=== PATIENT | male | born 1965 | race Caucasian/White ===

== ENCOUNTER 2016-11-07 18:13 | Inpatient (IN) | payer OTHER ==
[~2016-11-07] VITALS: Ht 193 cm; Wt 79.4 kg
--- NOTE | ~2016-11-07 | PA ---
Unit #: [id number] #: [id number] Patient: MARK QUINTANILLA [id number] [facility] [address] [place] [address] [id number] MR#: [id number] NAME: MARK QUINTANILLA. ROOM: P256 Age: 51 Sex: M Admission Date: 11/07/2016 : 1965 Date of Assessment: 11/08/2016 Attending Physician: Cheng Scruggs M.D. Admitting Physician: Cheng Scruggs M.D. Primary Care Physician: Primary Care Physician No PSYCHIATRIC ASSESSMENT IDENTIFYING INFORMATION The patient is a 51-year-old white male admitted to [address] [place] [address] complaining of "panic attacks." INFORMANT(S) Patient. RELIABILITY Poor. CHIEF COMPLAINT Panic attacks. HISTORY OF PRESENT ILLNESS The patient is a 51-year-old homeless white male admitted to the [facility] after he had been brought to this facility by his "sample case porter" from [place] reporting that he has been suffering "panic attacks." Patient reports these have occurred frequently over the past couple of days and he is demanding reinitiation of Klonopin and Suboxone which he has taken in the past. Patient reports that he last took Suboxone approximately 4 days ago and claims that it was prescribed to him. He does have a history of opioid use disorder but states that he has been "clean" using Suboxone for the past 4 years. The patient was making suicidal ideation with threats to jump from the 12th floor of the [facility]. He denies any auditory or visual hallucinations. When informed today that we will look towards non-scheduled medications to address his reported symptoms, the patient becomes angry and states that he has "tried all the psychotropics and none of them work except Klonopin and Ativan." The patient had reported that he was hearing voices telling him to jump from a 12 story window to the assessment center staff but does not endorse any auditory hallucinations when seen by this physician today. PAST PSYCHIATRIC HISTORY The patient was last hospitalized at this facility in November and December of 2014. He was under the care of this physician at this time and was discharged on no medications. The patient is status post gastric bypass and has reported a history of malabsorption which has caused significant weight gain and other multiple health issues. FAMILY HISTORY Noncontributory. SOCIAL HISTORY Unit #: [id number] #: [id number] Patient: MARK QUINTANILLA The patient is homeless. He is per history. He has a history of opioid use disorder. MEDICAL HISTORY As above. MEDICATION HISTORY At the time of admission, the patient was reporting the following medications amitriptyline, omeprazole, atenolol, promethazine and Ventolin. ALLERGIES NSAIDs, Keflex. MENTAL STATUS EXAM At this time, reveals the patient to be a somewhat ill appearing, disheveled white male appearing significantly older than his stated age of 48 years. He is edentulous. He is awake, alert, and oriented in all spheres. His mood is angry and irritable. His affect congruent. Speech is generally relevant and coherent. There are no gross deficits in memory or cognition noted. Intelligence is judged to be in the average range based on fund of knowledge. The patient is less than optimally cooperative during interview. He is currently reporting positive suicidal ideation. He denies homicidal ideation. He denies any psychotic symptoms. His judgement and insight appear to be somewhat impaired. ASSETS AND LIABILITIES Patient's assets to be assessed. Liabilities, lack of resources. ADMITTING DIAGNOSES 1. Dysthymic disorder. 2. Anxiety disorder, unspecified. 3. Panic disorder, unspecified. 4. History of opioid use disorder. 5. Hepatitis C per patient history. 6. Non-alcoholic cirrhotic liver disease per patient history. 7. Status post gastric bypass per patient history. PSYCHIATRIC PLAN/TREATMENT GOALS The patient will remain hospitalized for safety and stabilization. I have attempted to calmly inform the patient that initiation of Klonopin will not be an initiated given his history of substance abuse as well as the fact that initiation of such medication will essentially negate any chance that the patient will be able to follow through the auspices of various community mental health resources given the fact that none of these agencies now provide patients with benzodiazepines and in fact refused to accept them. Even if this were not the case, I do not feel as though this patient is a candidate for treatment with benzodiazepine medication given his history of med seeking as evidenced in 2014 and clear history of substance abuse. For this reason, we will go ahead and attempt to address the patient's depressive and anxiety symptoms with initiation of paroxetine 20 mg daily for anxiety and depression and will add p.r.n. Vistaril. The patient's claims of auditory hallucinations may warrant initiation of a second generation antipsychotic. ESTIMATED LENGTH OF STAY Three to five days. Unit #: [id number] #: [id number] Patient: MARK QUINTANILLA Dictated by... Cheng Scruggs M.D. CB/cori TD: 11/08/2016 11:31 JOB #: [id number] PSYCHIATRIC ASSESSMENT Page 1 of 1 X Cheng Scruggs MD X PSYCHIATRIC ASSESSMENT
--- NOTE | ~2016-11-07 | DS ---
Unit #: [id number] #: [id number] Patient: MARK QUINTANILLA [id number] [place] [address] [id number] MR#: [id number] NAME: MARK QUINTANILLA. ROOM: [facility] Age: 51 Sex: M Admission Date: 11/07/2016 : 1965 Discharge Date: 11/10/2016 Attending Physician: Cheng Scruggs M.D. Primary Care Physician: Primary Care Physician No DISCHARGE SUMMARY REASON FOR ADMISSION The patient is a 51-year-old white male, admitted to the [facility], complaining "panic attacks." HOSPITAL COURSE The patient was admitted to the [facility] and placed on suicide precautions. Because of his complaints of anxiety and depression, he was begun on paroxetine 20 mg daily and Vistaril 50 mg q.6 hours p.r.n. anxiety. The patient participated to no significant degree whatsoever within therapeutic milieu and was med seeking throughout his stay in the hospital, demanding initiation of Ativan and Klonopin. Given his substance abuse history, this physician did not feel as though such medication was in the patient's best interest. On 11/10/2016, the patient requested discharge. This physician was informed that the patient did not wish to continue treatment with paroxetine and it will not be provided at the time of discharge. FINAL DIAGNOSES Opioid use disorder; dysthymic disorder; gastroesophageal reflux disease; hypertension; history of opioid use disorder; hepatitis C; nonalcoholic cirrhotic liver disease per patient history; status post gastric bypass. DISPOSITION ON DISCHARGE The patient is discharged on the following medications; Elavil 10 mg daily for chronic pain, Protonix 40 mg daily for GERD, Tenormin 25 mg daily for hypertension, Phenergan 25 mg t.i.d. p.r.n. nausea and vomiting, Proventil HFA 2 puffs b.i.d. for COPD, Vistaril 50 mg q.6 hours p.r.n. anxiety. DISCHARGE INSTRUCTIONS No dietary or physical restrictions were placed on the patient at the time of discharge. FOLLOWUP Followup will take place through the auspices of community mental health resources. PROGNOSIS The patient's prognosis remains guarded. Dictated by... Cheng Scruggs M.D. Unit #: [id number] #: [id number] Patient: MARK QUINTANILLA KYLE/naga TD: 11/11/2016 02:55 JOB #: [id number] DISCHARGE SUMMARY Page 1 of 1 X Cheng Scruggs MD X DISCHARGE SUMMARY
--- NOTE | ~2016-11-07 | HP ---
Unit #: [id number] #: [id number] Patient: MARK QUINTANILLA [id number] [place] [address] [id number] MR#: [id number] NAME: MARK QUINTANILLA. ROOM: P256 Age: 51 Sex: M Admission Date: 11/07/2016 : 1965 Attending Physician: Cheng Scruggs M.D. Admitting Physician: Cheng Scruggs M.D. Primary Care Physician: Primary Care Physician No HISTORY AND PHYSICAL HISTORY OF PRESENT ILLNESS The patient is a 51-year-old male admitted to [address] [place] [address] on 11/08/2016 for suicidal ideation. PAST MEDICAL HISTORY 1. Hypertension. 2. COPD. 3. Anemia. 4. Hernia. 5. Hepatitis C. PAST SURGICAL HISTORY 1. Gastric bypass. 2. Abdominal surgery to remove an obstruction. ALLERGIES Keflex, NSAIDs, and penicillin. SOCIAL HISTORY He is disabled. He lives at [employer] and he smokes 1/2 pack of cigarettes daily. FAMILY HISTORY Noncontributory. REVIEW OF SYSTEMS CONSTITUTIONAL: No fever or chills. HEENT: Denies any sore throat, ear pain or runny nose. CARDIOVASCULAR: Denies chest pain, irregular heart rhythm or palpitations. CHEST: Denies shortness of breath or cough. No hemoptysis. GASTROINTESTINAL: Denies nausea, vomiting, diarrhea or chronic constipation. ENDOCRINE: Denies history of increased thirst or urination. No recent significant weight loss or gain. GENITOURINARY: Denies dysuria, frequency, or hematuria. SKIN: Denies any rashes. HEMATOLOGIC: Denies history of increased bleeding or bruising. MUSCULOSKELETAL: Denies any hot, swollen joints. No generalized muscle pain. NEUROLOGIC: Denies problems with vision or speech. No frequent, severe headaches. No numbness, tingling or weakness in any extremities. Denies loss of bladder or bowel control. Unit #: [id number] #: [id number] Patient: MARK QUINTANILLA CURRENT MEDICATIONS 1. Amitriptyline. 2. Omeprazole. 3. Atenolol. 4. Ventolin. PHYSICAL EXAMINATION GENERAL: He is awake, alert, oriented, in no acute distress. VITAL SIGNS: Temperature 98.2, heart rate 87, respirations 16, blood pressure 128/78. HEIGHT: 6 feet 4. WEIGHT: 175 pounds. SKIN: Warm and dry without rash or lesion. HEENT: Normocephalic. TMs not viewed. Oral and nasal passages clear. Conjunctivae clear. PERRLA. EOMs intact. NECK: Supple without lymphadenopathy or thyromegaly. HEART: Regular rate and rhythm without murmur. LUNGS: Clear. ABDOMEN: Soft, nontender. : Not done. EXTREMITIES: No evidence of cyanosis, clubbing or edema. Moves all without focal deficit. NEUROLOGICAL: Grossly within normal limits. Cranial Nerves: II: Visual watkins are intact. III, IV AND : Extraocular movements are intact. Pupils are equal, round and reactive to light. V: Facial sensation is grossly normal. VII: Facial movements and expression are normal. VIII: Auditory acuity grossly intact. IX, X: Uvula is midline. Phonation is normal. XI: Patient shrugs shoulders and turns head normally. XII: Tongue protrudes in the midline. Sensory and Motor Function: Sensory and motor sensation is grossly normal. Motor: moves all extremities well. Coordination: Gait is normal. Deep Tendon Reflexes: Intact. IMPRESSION 1. Psychiatric admission. 2. Hypertension. 3. Chronic obstructive pulmonary disease. 4. Anemia. 5. Hernia. 6. Hepatitis C. RECOMMENDATIONS PSYCHIATRIC: Per psychiatrist. MEDICAL: No contraindication to participate in facility's activities. MEDICAL PROGNOSIS Fair. MEDICAL CONDITION Stable. Dictated by... Gabriela Mark A.P.R.N. Unit #: [id number] #: [id number] Patient: MARK QUINTANILLA LASHON/cori TD: 11/08/2016 19:11 JOB #: [id number] HISTORY AND PHYSICAL Page 1 of 1 X GABRIELA MARK APRN HISTORY AND PHYSICAL
--- NOTE | ~2016-11-07 | PN ---
Unit #: [id number] #: [id number] Patient: MARK QUINTANILLA [id number] [facility] [address] [place] [address] [id number] MR#: [id number] NAME: MARK QUINTANILLA. ROOM: P256 Age: 51 Sex: M Admission Date: 11/07/2016 : 1965 Attending Physician: Cheng Scruggs M.D. Admitting Physician: Cheng Scruggs M.D. Primary Care Physician: Primary Care Physician Shawna SANCHEZ PROGRESS NOTES DATE 11/09/2016 DISCUSSION With the patient's med seeking having been seemingly thwarted by this physician he is now requesting "discharge back to the [facility]." I have explained to the patient that we would like to watch him for one further day given suicide threats made at the time of admission and should he sustain progress discharge would likely take place tomorrow. Dictated by... Cheng Scruggs M.D. CB/erum TD: 11/09/2016 22:10 JOB #: [id number] [facility] PROGRESS NOTES Page 1 of 1 X Cheng Scruggs MD X PROGRESS NOTE
[~2016-11-07 18:13] MED LIST: ATENOLOL PO; KLONOPIN PO; TAGAMET PO; TENORMIN50 MG PO
[2016-11-08 11:06] LABS: URINE APPEARANCE CLEAR; URINE BILIRUBIN NEG (NEG); URINE BLOOD NEG (NEG); URINE COLOR YELLOW; URINE GLUCOSE NEG (NEG); URINE KETONE NEG (NEG); URINE LEUKOCYTE ESTERASE NEG (NEG); URINE NITRATE NEG (NEG); URINE PH 6.5 (5-8); URINE PROTEIN NEG (NEG); URINE SPECIFIC GRAVITY 1.021 (1.003-1.035); URINE UROBILINOGEN 0.2 MG/DL (NEG)
[2016-11-08 11:45] LABS: AMPHETAMINE NEG (NEG); BARBITURATES NEG (NEG); BENZODIAZEPINES NEG (NEG); COCAINE NEG (NEG); MARIJUANA NEG (NEG); OPIATES NEG (NEG); TRICYCLIC ANTIDEPRESSANTS POS (NEG); U METHADONE NEG (NEG)
== END 2016-11-10 14:15 | disposition home or self-care (01) | DRG 881 ==
LOC: P2L 22:14
PROVIDERS: Specialist
DX: F34.1 Dysthymic disorder (principal); K74.60 Unspecified cirrhosis of liver; R45.851 Suicidal ideations; I10 Essential (primary) hypertension; F41.0 Panic disorder [episodic paroxysmal anxiety]; B18.2 Chronic viral hepatitis C; Z98.84 Bariatric surgery status; J44.9 Chronic obstructive pulmonary disease, unspecified; Z88.0 Allergy status to penicillin; Z88.8 Allergy status to other drugs, medicaments and biological substances; F17.210 Nicotine dependence, cigarettes, uncomplicated; K21.9 Gastro-esophageal reflux disease without esophagitis
CPT/HCPCS: 80307; 81003